=== PATIENT | female | born 1995 | race Two or more races ===

== ENCOUNTER 2022-05-19 17:20 | Emergency (ER) | payer OTHER ==
[2022-05-19 17:35] VITALS: BP 109/65
== END 2022-05-20 05:30 | disposition left against medical advice (07) ==
LOC: ER 17:20
DX: M25.531 Pain in right wrist (principal); Z53.21 Procedure and treatment not carried out due to patient leaving prior to being seen by health care provider; W01.0XXA Fall on same level from slipping, tripping and stumbling without subsequent striking against object, initial encounter; Y93.89 Activity, other specified; Y92.89 Other specified places as the place of occurrence of the external cause; Y99.8 Other external cause status